=== PATIENT | female | born 1955 | race American Indian/Alaskan Native ===

== ENCOUNTER 2016-12-11 08:55 | Emergency (ER) | payer OTHER ==
[2016-12-11 09:03] VITALS: BP 157/80
--- NOTE | 2016-12-11 09:18 | Emergency Department Report ---
- General Chief Complaint: Upper Respiratory Infection Stated Complaint: COLD SX/SORETHROAT/RUNNY NOSE Source: patient Mode of arrival: Ambulatory Limitations: No Limitations - History of Present Illness Initial Comments: Patient comes in the ER today with complaints of cough, nasal congestion, sore throat, body aches for the past week. Patient has been taking [id number] medications such as Tylenol and ibuprofen for the aches and pains, fever but states that she continues to cough up phlegm. Patient does state that she is a diabetic and that this morning her blood sugar level was 179. Associated Symptoms: fever, chills, rhinorrhea, nasal congestion, sore throat, cough, hoarseness. denies: chest pain, shortness of breath, abdominal pain, nausea, vomiting, diarrhea, dysuria, rash, confusion, right sweats, epistaxis, ear pain Treatments Prior to Arrival: Acetaminophen - Related Data Previous Rx's Medication Instructions Recorded Last Taken Type Amoxicillin/K Clav Tab [Augmentin 1 tab PO Q12HR #20 tab 12/11/16 Unknown Rx 875 mg] Allergies Allergy/AdvReac Type Severity Reaction Status Date / Time No Known Allergies Allergy Unverified 12/15/13 09:54 ED Review of Systems ROS: Stated complaint: COLD SX/SORETHROAT/RUNNY NOSE Other details as noted in HPI Constitutional: chills, fever Eyes: denies: eye pain, eye discharge, vision change ENT: throat pain, congestion. denies: ear pain, hearing loss Respiratory: cough. denies: shortness of breath, SOB with exertion, SOB at rest , wheezing Cardiovascular: denies: chest pain, palpitations, dyspnea on exertion Endocrine: no symptoms reported Gastrointestinal: denies: abdominal pain, nausea, diarrhea Genitourinary: denies: urgency, dysuria, discharge Musculoskeletal: denies: back pain, joint swelling, arthralgia Skin: denies: rash, lesions Neurological: denies: headache, weakness, paresthesias Psychiatric: denies: anxiety, depression Hematological/Lymphatic: denies: easy bleeding, easy bruising ED Past Medical Hx - Past Medical History Previous Medical History?: Yes Hx Congestive Heart Failure: Yes Hx Diabetes: Yes - Surgical History Past Surgical History?: No - Social History Smoking Status: Never Smoker Substance Use Type: Alcohol, Non Opiate Pain, Prescribed, Other - Medications Home Medications: Home Medications Medication Instructions Recorded Confirmed Last Taken Type Amoxicillin/K Clav Tab [Augmentin 1 tab PO Q12HR #20 tab 12/11/16 Unknown Rx 875 mg] ED Physical Exam - General Limitations: No Limitations General appearance: alert, in no apparent distress - Head Head exam: Present: atraumatic, normocephalic - Eye Eye exam: Present: normal appearance - ENT ENT exam: Present: mucous membranes moist, TM's normal bilaterally, normal external ear exam, other (bilateral nasal mucosa redness with turbinate swelling. Positive postnasal drainage noted on pharynx with minimal erythematous.) - Neck Neck exam: Present: normal inspection - Respiratory Respiratory exam: Present: normal lung sounds bilaterally, rhonchi. Absent: respiratory distress, wheezes, rales, stridor, chest wall tenderness, accessory muscle use, decreased breath sounds, prolonged expiratory - Cardiovascular Cardiovascular Exam: Present: regular rate, normal rhythm. Absent: systolic murmur, diastolic murmur, rubs, gallop - GI/Abdominal GI/Abdominal exam: Present: soft, normal bowel sounds. Absent: distended, tenderness - Extremities Exam Extremities exam: Present: normal inspection. Absent: pedal edema, joint swelling - Back Exam Back exam: Present: normal inspection - Neurological Exam Neurological exam: Present: alert, oriented X3 - Psychiatric Psychiatric exam: Present: normal affect, normal mood - Skin Skin exam: Present: warm, dry, intact, normal color. Absent: rash ED Course Vital Signs 12/11/16 08:59 Temperature 98.1 F Pulse Rate 80 Respiratory 20 Rate Blood Pressure 157/80 O2 Sat by Pulse 98 Oximetry ED Medical Decision Making - Medical Decision Making Patient is nontoxic and hemodynamically stable. Patient's examination is consistent with upper respiratory infection. Due to the duration of symptoms, patient will be started on antibiotics. Patient is in agreement with treatment plan and patient is stable for discharge. Critical care attestation.: If time is entered above; I have spent that time in minutes in the direct care of this critically ill patient, excluding procedure time. ED Disposition Clinical Impression: Sinusitis, Bronchitis Disposition: DISCHARGED TO HOME OR SELFCARE Is pt being admited?: No Does the pt Need Aspirin: No Condition: Good Instructions: Acute Bronchitis (ED), Sinusitis (ED) Prescriptions: Amoxicillin/K Clav Tab [Augmentin 875 mg] 1 tab PO Q12HR #20 tab Referrals: PRIMARY CARE, [Primary Care Provider] - 3-5 Days Forms: Work/School Release Form(ED) Time of Disposition: 09:20
== END 2016-12-11 09:28 | disposition home or self-care (01) ==
LOC: ED 08:55
DX: J40 Bronchitis, not specified as acute or chronic (principal); J32.9 Chronic sinusitis, unspecified; I50.9 Heart failure, unspecified; E11.9 Type 2 diabetes mellitus without complications
CPT/HCPCS: 99282

== ENCOUNTER 2022-03-24 15:42 | Emergency (ER) | payer MEDICARE ==
[2022-03-24 20:17] LABS: Basophils % (Auto) 0.5 % (0.0-1.8); Eosinophils # (Auto) 0.1 K/mm3 (0.0-0.4); Hemoglobin 13.8 gm/dl (10.1-14.3); Lymphocytes # (Auto) 3.7 K/mm3 (1.2-5.4); Mean Corpuscular HGB Conc 33 % (30-34); Mean Corpuscular Volume 91 fl (79-97); Monocytes # (Auto) 0.5 K/mm3 (0.0-0.8); Platelet Count 206 K/mm3 (140-440); Red Blood Count 4.62 M/mm3 (3.65-5.03); Red Cell Distribution Width 13.7 % (13.2-15.2)
[2022-03-24 20:46] LABS: Alanine Aminotransferase 156 units/L (7-56); Albumin 4.5 g/dL (3.9-5); BUN/Creatinine Ratio 31; Blood Urea Nitrogen 43 mg/dL (7-17); Calcium 9.3 mg/dL (8.4-10.2); Hemolysis Index 15
--- NOTE | 2022-03-24 20:58 | Emergency Department Report ---
ED General Adult HPI - General Chief complaint: Dizziness Stated complaint: DIZZY Time Seen by Provider: 03/24/22 19:47 Source: patient, EMS Mode of arrival: Stretcher Limitations: No Limitations - History of Present Illness Initial comments: Patient is a 66-year-old female presenting to ED with complaint of intermittent hypotension and dizziness. Severity scale (0 -10): 0 - Related Data Previous Rx's Medication Instructions Recorded Last Taken Type Amoxicillin/K Clav Tab [Augmentin 1 tab PO Q12HR #20 tab 12/11/16 Unknown Rx 875 mg] Allergies Allergy/AdvReac Type Severity Reaction Status Date / Time No Known Allergies Allergy Unverified 03/24/22 16:31 ED Review of Systems ROS: Stated complaint: DIZZY Other details as noted in HPI ED Past Medical Hx - Past Medical History Hx Hypertension: Yes Hx CVA: Yes Hx Congestive Heart Failure: Yes Hx Diabetes: Yes - Social History Smoking Status: Never Smoker Substance Use Type: Alcohol - Medications Home Medications: Home Medications Medication Instructions Recorded Confirmed Last Taken Type Amoxicillin/K Clav Tab [Augmentin 1 tab PO Q12HR #20 tab 12/11/16 Unknown Rx 875 mg] ED Physical Exam - General Limitations: No Limitations ED Course Vital Signs 03/24/22 03/24/22 15:43 17:56 Temperature 98.2 F Pulse Rate 60 Respiratory 14 Rate Blood Pressure 146/72 [Left] O2 Sat by Pulse 97 98 Oximetry ED Medical Decision Making - Lab Data Result diagrams: 03/24/22 19:58 03/24/22 19:58 - EKG Data -: EKG Interpreted by Md EKG shows normal: sinus rhythm, axis, intervals, QRS complexes, ST-T waves Rate: normal - EKG Data Interpretation: normal EKG - Medical Decision Making Serum glucose 637. Potassium 2.3, magnesium 2.1. Patient given IV fluids. Insulin held and patient given IV and oral potassium. Calcium 7.1. Patient given IV calcium gluconate. Anion gap is 22, bicarb 16. Likely metabolic acidosis secondary to diarrhea. ABG pending. Will admit to hospitalist for further management. Critical care attestation.: If time is entered above; I have spent that time in minutes in the direct care of this critically ill patient, excluding procedure time. ED Disposition Clinical Impression: Hyperglycemia due to diabetes mellitus, Acidosis, metabolic, Hypokalemia due to excessive gastrointestinal loss of potassium, Hypocalcemia Disposition: 09 ADMITTED INPATIENT Is pt being admited?: Yes Condition: Stable Instructions: Diabetes Mellitus Type 2 in Adults (ED)
[2022-03-24] MEDS ORDERED: DEXTROSE 50% IN WATER (25GM) 50 ML VIAL IV ONE (20:59)
[2022-03-24] MEDS ORDERED: GLUCAGON (HUMAN RECOMBINANT) 1 MG/ML INJ IV ONE (22:00)
[2022-03-25 00:14] VITALS: BP 127/79
--- NOTE | 2022-03-26 09:44 | Electrocardiograph Report ---
[facility] Test Date: 2022-03-24 Test Time: 21:12:12 Pat Name: ALEIDA DELEON Department: Room: Gender: F Marketing Analyst: LYLE : 1955 Requested By: SHANIA HARKINS Order Number: [id number] Reading MD: Cornelio Johnson Measurements Intervals [place] Rate: 61 P: 63 RI: 168 QRS: 43 QRSD: 102 T: 37 QT: 443 QTc: 446 Interpretive Statements Sinus rhythm No previous ECG available for comparison Electronically Signed On 03-26-2022 9:43:53 EDT by Cornelio Johnson
== END 2022-03-24 23:35 | disposition home or self-care (01) ==
LOC: ED 15:42
DX: E11.65 Type 2 diabetes mellitus with hyperglycemia (principal); E87.2 Acidosis; E87.6 Hypokalemia; E83.51 Hypocalcemia; I11.0 Hypertensive heart disease with heart failure; I50.9 Heart failure, unspecified; Z86.73 Personal history of transient ischemic attack (TIA), and cerebral infarction without residual deficits
CPT/HCPCS: 36415; 80053; 82962; 84484; 85025; 93005; 96374; 96375; 99284; J1610; J3490